=== PATIENT | female | born 1960 | race African-American/Black ===

== ENCOUNTER 2017-03-09 10:56 | Observation (INO) | payer MEDICAID ==
[2017-03-09] VITALS (7 sets, daily range): BP systolic 101–134; BP diastolic 62–73; PULSE 69–82; RESP 16–21; TEMP 98–98.9; O2SAT 95–100
[~2017-03-09 10:56] MED LIST: AMLO5TAB2 PO; ASPI81TA81 PO; BUTA1CAP7 PO; CHLO25TA38 PO; CYCL5TAB PO; INFL1INJ31 IM; METO25TA3 PO; MOBI7.5T PO; NEBULIZER1 MI1; NITR50VP; OXYC-392 PO; PLAV75TA29 PO; PRAV40TA PO; PROT40TA PO
[2017-03-09] MEDS ORDERED: SODIUM CHLORIDE 0.9% FLUSH 10 ML FLUSH IV FLUSH PRN (12:30)
[2017-03-09] MEDS ORDERED: NITROGLYCERIN 0.4 MG SL 25 TABS/BTL SL PRN (12:30)
[2017-03-09] MEDS ORDERED: ACETAMINOPHEN 500 MG CPLT PO PRN (12:30)
--- NOTE | 2017-03-09 13:28 | HHI.HP ---
HPI Primary Care Physician PCP located in [place] Chief Complaint Chest pressure History of Present Illness 56-year-old female significant history of hypertension, asthma, and reported myocardial infarction with one stent presents to emergency room for further evaluation of substernal chest pressure. Onset yesterday afternoon while swimming. States she dropped one of her rings at the bottom of her 10 foot deep pool and tried multiple times to swim down to get ring. On multiple occasions she became short of breath and had a difficult time getting to the bottom of a poor. She believes this was the onset of her chest pressure. After swimming yesterday she has had constant chest pressure. Associated symptoms include nausea, vomiting, and diaphoresis. No known relieving factors. Continues to have chest pressure. No radiation of pain. Endorses one cardiac stent in the past and is compliant with Plavix. Municipal Firefighter is Dr. Mcconnell in [place]. Endorses recent chemical stress test spring and was told test was normal. Review of Systems General: No fatigue,weakness, fever, chills, recent travel, recent illness, or change in appetite. Has been her general state of health. States her PUBLISHING MANAGER is currently working her up for left breast pain and awaiting a mammogram. HEENT: No CARR, no nasal congestion or drainage. Reports occasional dysphasia with certain foods, EGD completed at the end of last year normal." She continues to take Protonix daily as ordered. Endorses vision changes over the past few months, last eye exam over 7 years ago. CV: As stated above. No palpitations, intermittent leg pain, or dizziness RESP: No SOB, cough, wheeze, hemoptysis, recent URI. History of asthma, states asthma well controlled with rescue inhaler needed only to3 times monthly. GI: Nausea and vomiting has improved. No bowel changes, diarrhea, constipation , pain, distention, melena, blood in the stool. No unintentional weight gain or weight loss. : No dysuria, urgency, frequency, hematuria EXT: Occasional dependent edema relieved with elevation of legs. No paraesthesias MS: No discomfort or change in ROM NEURO: No change in memory, dizziness, difficulty with balance, LOC, motor/ sensory deficits PSYCH: Anxiety and depression stable on current medication, endorses situational stress regarding her son, stating "my son is addicted to drugs and causes me a lot of stress." SKIN: No rashes, no concerning lesions Past Family Social History Allergies: Coded Allergies: Coconut (Verified Allergy, Severe, Hives, 09/01/16) PEANUTS (Verified Allergy, Severe, Hives, 09/01/16) Penicillin (Verified Allergy, Severe, 09/01/16) CANNOT BREATHE Zofran (Verified Allergy, Severe, 09/01/16) Reglan (Verified Allergy, Unknown, freaked out, 09/01/16) Past Medical History Rheumatoid arthritis, anxiety, depression, asthma, sleep apnea, TIA (7 years ago ), hypertension, hyperlipidemia, GERD, degenerative disc disease, migraines, myocardial infarction with one stent Past Surgical History Cholecystectomy, hysterectomy, right breast lumpectomy, left knee replacement Reported Medications Active Oxycodone (Oxycodone HCl) 5 Mg Tab 0.5 Tab PO DAILY PRN FINAL REFILL: Please use sparingly and only when needed. This is the Amlodipine (Amlodipine Besylate) 5 Mg Tab 5 Mg PO DAILY Pravachol (Pravastatin) 40 Mg Tab 40 Mg PO DAILY Flexeril (Cyclobenzaprine HCl) 5 Mg Tab 5 Mg PO BID PRN Do not use while operating heavy machinery or driving. No refills without re-examination. Nebulizer 1 Mis Mis 1 Ea .ROUTE DIRECTED With tubing and mouth piece please Ikpzhojofo-Evlmolcstvamq-Adrkjjsy-Codeine [id number] Mg Cap 1-2 Cap PO Q4H PRN Do not exceed 6 capsules/day. Nitroglycerin 5 Mg/Ml Inj Aspir-81 (Aspirin) 81 Mg Tabdr Chlorpromazine (Chlorpromazine HCl) 25 Mg Tab 25 Mg PO TID PRN Protonix (Pantoprazole Sodium) 40 Mg Tab 40 Mg PO BID Plavix (Clopidogrel Bisulfate) 75 Mg Tab 75 Mg PO DAILY Metoprolol Tartrate 25 Mg Tab 25 Mg PO BID Active Ordered Medications Current Medications Medications (Trade) Dose Ordered Sig/Simon Route Start Time Stop Time Status Last Admin (Tylenol) 500 mg Q4H PRN PO 03/09/17 12:30 (Nitrostat Sl) 0.4 mg Q5M PRN SL 03/09/17 12:30 (Aspirin) 325 mg DAILY PO 03/10/17 09:00 Family History Noncontributory for early onset cardiovascular disease. Mother CABG 4 early 60s, father congestive heart failure, sister aortic aneurysm dissection Social History Known hypertension and hyperlipidemia. No known diabetes. Quit smoking 10 place years ago. Prior to quitting smoking 2 packs 4 years. Denies any alcohol or illegal drug use. States she is active swims daily. Past cardiac testing States she completed a chemical stress test in either November or December 2016 and was told test was normal. Believe she had a cardiac catheterization at [facility] in [place] approximately 7 years ago and at that time cardiac stent was placed. Per [place] records Bria scan completed 04/04/12 small areas of moderate reversibility and cardiac apex and lateral wall. 04/05/12 cardiac catheterization (Dr. Mays)- 1. Normal coronary arteries 2. Preserved LV function EF 55%. Physical Exam Vital Signs Vital Signs Date Time Temp Pulse Resp B/P Pulse Ox O2 Delivery O2 Flow Rate FiO2 03/09/17 12:46 98.9 82 19 115/73 96 Physical Exam GENERAL: Alert WN, WD, NAD, pleasant, obese, female HEAD: NC, AT EYES: Sclera clear ENT: Mucous membranes pink and moist NECK: Supple, no masses, trachea midline CV: RRR, systolic 2/6 murmur, no rub, gallop, no JVD, S1-S2 no S3-S4. RESP: Diminished bilateral bases, clear lung upper lobes. No crackles, wheeze, rhonchi, symmetrical chest rise, nonlabored, able to speak in full sentences ABD: Soft, NT, ND, no masses, positive bowel tones EXT: Pulses +24, trace dependent pedal edema MS: Normal tone 4 extremities, nontender, no obvious deformities, full range of motion NEURO: CN II through CN XII grossly intact, motor strength 5/5, gait WNL PSYCH: A+O 3, pleasant affect, appropriate speech, appropriate mood and affect , insight and judgment SKIN: Normal turgor, normal texture, no lesions, no rashes, even hair distribution Laboratory CBC completed [facility] unremarkable CMP completed [facility] unremarkable D-dimer 0.62 3 sets of troponin unremarkable AST 20, ALT 21 Imaging Chest x-ray read by radiologist no acute cardiopulmonary findings. CTA read by radiologist-1. No evidence of PE. 2.0 scattered atelectasis bilateral. 3. Cardiomegaly and coronary artery calcifications. 4. Tiny pericardial effusion 5. Mild prominence of the extrahepatic and central biliary system of indeterminate etiology. Correlation with alkaline and phosphatase and bilirubin levels suggested. 6. Degenerative changes and scoliosis of the thoracic spine.. Course EKG Normal sinus rhythm with right bundle branch Assessment and Plan Assessment and Plan #1 Chest pressureadmitted to chest pain center. Ruled out with 3 sets of cardiac enzymes. First EKG unremarkable, we'll complete 2 more EKGs. Will be seen and evaluated by Dr. Ana Jones. Further disposition to follow. #2 Musculoskeletal painToradol 30 mg IV 1 dose #3 Hyperlipidemiacontinue pravastatin #4 GERDcontinue Protonix, GI cocktail given in ER, encouraged follow up with GI and PCP regarding occasional dysphagia #5 Hypertensioncontinue amlodipine #6 History of cardiac stentcontinue Plavix, aspirin, and metoprolol 15:15-patient seen and evaluated by Dr. Ana Jones. Patient given option to complete CT of coronary arteries as patient has had recent normal Bria scan and in 2011 normal cardiac catheterization. Patient is agreeable to this plan of care. CT coronary arteries unable to be completed today therefore will be completed in a.erma. Sophia Kamara March 09, 2017 13:28
[2017-03-09] MEDS ORDERED: OXYC15TA PO (14:11)
[2017-03-09] MEDS ORDERED: NITR1SUB3 SL (14:11)
[2017-03-09] MEDS ORDERED: PRENATAL VITAMIN PO (14:17)
[2017-03-09] MEDS ORDERED: PYRI100T17 PO (14:17)
[2017-03-09] MEDS ORDERED: CYMB60CA PO (14:17)
[2017-03-09] MEDS ORDERED: K-TA10TA PO (14:17)
[2017-03-09] MEDS ORDERED: CLON0.5T PO (14:17)
[2017-03-09] MEDS ORDERED: ALBU0.08 NEB (14:19)
[2017-03-09] MEDS ORDERED: KETOROLAC TROMETHAMINE 30 MG/ML (IVP) VIAL IV PUSH ONE (14:30)
--- NOTE | 2017-03-09 15:17 | EKG ---
Date Performed: 03/09/2017 Time Performed: 13:04:12 PTAGE: 56 years EKG: Sinus rhythm RIGHT BUNDLE BRANCH BLOCK LEFT ANTERIOR FASCICULAR BLOCK ABNORMAL ECG Since PREVIOUS TRACING , no significant change noted PREVIOUS TRACIN04/03/2012 18.57 DOCTOR: Ana Jones Interpretating Date/Time 03/09/2017 15:14:58
[2017-03-09] MEDS ORDERED: MORPHINE SULFATE 4 MG/ML INJ IV ONE (15:45)
[2017-03-09] MEDS ORDERED: CYCLOBENZAPRINE HCL 10 MG TAB PO PRN (17:15)
[2017-03-09] MEDS ORDERED: RESP: ALBUTEROL 2.5 MG/3 ML NEB (PRN) NEB (17:15)
[2017-03-09] MEDS ORDERED: PILL SPLITTER OTHER PRN (18:00)
[2017-03-09] MEDS: PANTOPRAZOLE SOD 40 MG DELAYED RELEASE TAB PO SCH (20:27)
[2017-03-09] MEDS: clonazePAM 0.5 MG TAB PO PRN (20:27)
[2017-03-09] MEDS: METOPROLOL TARTRATE 25 MG TAB PO SCH (20:27)
[2017-03-09] MEDS: SODIUM CHLORIDE 0.9% FLUSH 10 ML FLUSH IV FLUSH SCH (20:28)
[2017-03-09] MEDS: MORPHINE SULFATE 4 MG/ML INJ IV PUSH PRN (20:29)
[2017-03-10 00:15] VITALS: O2SAT 100
[2017-03-10 04:00] VITALS: PULSE 70
[2017-03-10] MEDS: MORPHINE SULFATE 4 MG/ML INJ IV PUSH PRN ×2 (04:14→12:36)
[2017-03-10 07:56] VITALS: O2SAT 96
[2017-03-10 08:00] VITALS: PULSE 72
[2017-03-10 08:14] VITALS: BP 109/60; PULSE 71; RESP 20; TEMP 98.6; O2SAT 96
[2017-03-10] MEDS: PANTOPRAZOLE SOD 40 MG DELAYED RELEASE TAB PO SCH (08:40)
[2017-03-10] MEDS: SODIUM CHLORIDE 0.9% FLUSH 10 ML FLUSH IV FLUSH SCH (08:41)
[2017-03-10] MEDS ORDERED: amLODIPine BESYLATE 5 MG TAB PO SCH (09:00)
[2017-03-10] MEDS ORDERED: PRAVASTATIN SOD 40 MG TAB PO SCH (09:00)
[2017-03-10] MEDS ORDERED: POTASSIUM CHLORIDE 10 MEQ CONTROLLED RELEASE TAB PO SCH (09:00)
[2017-03-10] MEDS ORDERED: CLOPIDOGREL 75 MG TAB PO SCH (09:00)
[2017-03-10] MEDS ORDERED: ASPIRIN 325 MG TAB PO SCH (09:00)
[2017-03-10] MEDS ORDERED: clonazePAM 0.5 MG TAB PO PRN (09:15)
[2017-03-10] MEDS: clonazePAM 0.5 MG TAB PO PRN (09:47)
[2017-03-10] MEDS: METOPROLOL TARTRATE 25 MG TAB PO SCH (09:47)
[2017-03-10 11:20] VITALS: BP 122/74; PULSE 68; RESP 20; O2SAT 96
--- NOTE | 2017-03-10 12:51 | HHI.PR ---
Subjective Remarks Follow up for chest pain. Patient is currently waiting for left and right heart cath. Denies any acute concerns. Objective Vitals Vital Signs Date Time Temp Pulse Resp B/P Pulse Ox O2 Delivery O2 Flow Rate FiO2 03/10/17 11:20 68 20 122/74 96 03/10/17 08:14 98.6 71 20 109/60 96 03/10/17 08:00 72 03/10/17 07:56 96 Nasal Cannula 2.00 03/10/17 04:00 70 03/10/17 04:00 70 03/10/17 00:15 100 03/09/17 23:48 98.5 70 21 123/71 100 03/09/17 22:14 18 03/09/17 22:13 18 03/09/17 20:59 98.5 75 18 134/62 97 03/09/17 15:50 18 03/09/17 15:28 98.0 70 16 101/67 95 03/09/17 14:02 96 21 Imaging Last Impressions Cardiac Scoring CT 03/09/17 0000 Signed Impressions: Service Date/Time: Friday, March 10, 2017 11:41 - CONCLUSION: Findings as described above. Heath Jiménez MD FACR Objective Remarks GENERAL: AOX3, NAD. SKIN: Warm and dry. HEAD: Normocephalic. EYES: No scleral icterus. No injection or drainage. NECK: Supple, trachea midline. No JVD or lymphadenopathy. CARDIOVASCULAR: Regular rate and rhythm without murmurs, gallops, or rubs. RESPIRATORY: Breath sounds equal bilaterally. No accessory muscle use. GASTROINTESTINAL: Abdomen soft, non-tender, nondistended. MUSCULOSKELETAL: No cyanosis, or edema. BACK: Nontender without obvious deformity. No CVA tenderness. Procedures Cardiac cath 03/10/2017. Official report pending. Cath showed no significant CAD. A/P Assessment and Plan - Chest pressureadmitted to chest pain center. Ruled out with 3 sets of cardiac enzymes. Patient underwent Cardiac cath on 03/10/2017. No significant coronary artery disease. - Hyperlipidemiacontinue pravastatin - GERD - Continue PPI BID. - Hypertensioncontinue amlodipine - History of cardiac stentcontinue Plavix, aspirin, and metoprolol Discharge patient to home Condition on discharge: Improved Heart healthy Diet as tolerated Ad Darleen activity Rx written: No new medications. Follow-up with primary care physician within one week and Cardiology within two weeks. Sonya Joy DO March 10, 2017 12:51
[2017-03-10] MEDS ORDERED: clonazePAM 0.5 MG TAB PO ONE (13:00)
--- NOTE | 2017-03-10 13:30 | RADRPT ---
EXAM DATE/TIME: 03/10/2017 11:41 [facility] COMPARISON: No previous studies available for comparison. INDICATIONS : Chest pain RADIATION DOSE: 4.14 CTDIvol (mGy) MEDICAL HISTORY : Cardiovascular disease. SURGICAL HISTORY : Coronary artery stent. ENCOUNTER: Initial ACUITY: 1 day PAIN SCALE: 5/10 LOCATION: chest TECHNIQUE: Low-dose prospectively gated CT images of the heart were obtained and quantitative analysis of leon ry artery calcification was performed. Comparison was made to a patient database of similar age and g taylor. Using automated exposure control and adjustment of the mA and/or kV according to patient size , radiation dose was kept as low as reasonably achievable to obtain optimal diagnostic quality images . FINDINGS: There are no coronary artery calcifications evident. There are no significant vascular calcification s evident. There is stent in the mid LAD adjacent to a single calcified plaque. Significant ectopy without lower us to perform CT coronary angiogram. CONCLUSION: Findings as described above. Heath Jiménez MD FACR on March 10, 2017 at 13:27 Board Certified Radiologist. This report was verified electronically.
--- NOTE | 2017-03-10 13:50 | EKG ---
Date Performed: 03/09/2017 Time Performed: 15:39:46 PTAGE: 56 years EKG: NORMAL Sinus rhythm WITH PVC MARKED RIGHT AXIS DEVIATION RIGHT BUNDLE BRANCH BLOCK ABNORMAL ECG PREVIOUS TRACING : 03/09/2017 13.04 Since previous tracing, no significant change noted DOCTOR: Jorge Hernández Interpretating Date/Time 03/10/2017 13:49:47
[2017-03-10] MEDS ORDERED: HEPARIN-NS/PF INJ 500 ML ONE (14:39)
[2017-03-10] MEDS ORDERED: MIDAZOLAM HCL 2 MG/2 ML VIAL ONE ×2 (14:53→15:41)
[2017-03-10] MEDS ORDERED: IOHEXOL 350 MG/ML 100 ML BTL (for Cath Lab) OTHER ONE (15:30)
--- NOTE | 2017-03-10 15:36 | MB ---
cc: MONI LEVINE M.D. DATE OF CONSULTATION: 03/10/2017 HISTORY OF PRESENT ILLNESS Ludmila is a very pleasant 56-year-old lady who has a history of coronary disease status post PCI remotely in time. She presents with chief complaint of moderate chest pain described as tightness which occurred after swimming yesterday. Also described as pressure-like. According to the GABE Elias, she has been having PVCs. She had a stress test by her knitting tester in [place] approximately two months ago that was reported as being normal. Otherwise denies any fever, chills, cough, GI or bleeding, PND, orthopnea, syncope or dizziness. PAST MEDICAL HISTORY Per history of present illness. ALLERGIES 1. COCONUT. 2. PEANUTS. 3. PENICILLIN. 4. ZOFRAN. 5. REGLAN. PAST MEDICAL HISTORY 1. Rheumatoid arthritis. 2. Anxiety. 3. Depression. 4. Asthma. 5. Sleep apnea. 6. TIA. 7. Hypertension. 8. Hyperlipidemia. 9. GERD. 10.DJD. 11.Migraines. 12.Myocardial infarction status post PCI. PAST SURGICAL HISTORY 1. Cholecystectomy. 2. Hysterectomy. 3. Right breast lumpectomy. 4. Left knee replacement. MEDICATIONS Medications at home: 1. Oxycodone. 2. Amlodipine. 3. Pravachol. 4. Flexeril. 5. Nebulizer. 6. Butalbital. 7. Nitroglycerin. 8. Aspirin 81 mg a day. 9. Chlorpromazine. 10.Protonix. 11.Plavix 75. 12.Metoprolol 25 mg b.i.d. Medications in the hospital: 1. Aspirin 325 mg daily. 2. Amlodipine 5 mg daily. 3. Clopidogrel 75 mg daily. 4. Potassium 10 mEq daily. 5. Pravastatin 40 mg daily. 6. Metoprolol 25 mg b.i.d. 7. Pantoprazole 40 mg daily. REVIEW OF SYSTEMS She complains of dyspnea. PHYSICAL EXAMINATION VITAL SIGNS: Blood pressure 122/74, pulse 68, respiratory rate 20, temperature 98.6, sats 96% on room air. GENERAL: She is alert and oriented x3, in no acute distress. NECK: Supple. No JVD. No bruit. CARDIOVASCULAR: S1, S2. No murmurs, rubs or gallops. LUNGS: Clear to auscultation bilaterally. ABDOMEN: Soft, nontender, nondistended. Positive bowel sounds. EXTREMITIES: No lower extremity edema. IMAGING She had a cardiac scoring CT on 03/09/2017 showing a stent in the mid LAD adjacent to a single calcified plaque. No coronary calcifications evident. EKG EKG: Sinus rhythm with a right bundle branch block, left anterior fascicular block, nonspecific ST-T wave changes. DIAGNOSIS 1. Unstable angina. 2. [place] Cardi[employer] class 3 angina. 3. Coronary artery disease. 4. Dyspnea. 5. CHF. 6. Rheumatoid arthritis. 7. Arrhythmia. 8. PVCs. 9. Hypertension. 10.Hyperlipidemia. DISCUSSION At this point in time the patient has a high pretest probability for an ischemic etiology to her symptoms as she has a history of coronary disease with a calcified plaque adjacent to the LAD stent with new-onset cardiac symptoms of moderate chest pressure with relatively minimal exertion and dyspnea on exertion consistent with CHF. She also has a systemic inflammatory condition, rheumatoid arthritis, and multiple cardiac risk factors and co-morbidities. She has already had a stress test, therefore, I do think right heart catheterization and left heart catheterization are medically necessary due to the aforementioned reasons. MD TRAE Quinn/SOLITARIO /2:30 PM /3:15 PM
--- NOTE | 2017-03-10 15:38 | CATHPROC ---
[facility] HIS Report Study Information Study Number Scheduled Start Study Start 1043-17 03/10/2017 Mar 10 2017 3:01PM Referring Institution Admit Source Facility Department 1 Emergency department [facility] - Arrt Technologist Physician and Clinical Staff Initial Ilir Hayden Transit Survey WorkerElsa Mccartney RN Circulator Ferlitto, Joey,LUCA Recorder Terrell Elizabeth RCIS(BS) Scrub Adan Cooper,RT(R) Procedures Performed Procedure Location (Site) Vessel Name Coronary Angiograms LCA Left Coronary Coronary Angiograms RCA Right Coronary LV Gram-hand inj. LV LV Ventricle Equipment Time Shuttlecock Feather Trimmer Description Size Mfg Part Number Used/Scraped CATHETER, FR5 SWAN MYKE 15:14 LR ESQUIVEL FR 5 [id number] *[id number] Used MONITOR [id number] 15:16 LR ESQUIVEL SWAN MYKE CATHETER FR 7 Used *[id number] TRANSDUCER, TRUWAVE [id number] 15:14 LR ESQUIVEL * Used W/STOCKCOCK *[id number] TRANSDUCER, TRUWAVE [id number] 15:14 LR ESQUIVEL * Used W/STOCKCOCK *[id number] [id number] *[id number] [id number] *[id number] 15:14 [employer] INDUSTRIES PACK, CCL CUSTOM * Used *[id number] 15:14 [employer] PACER PEN, SKIN DUAL W/ RULER * Used *[id number] 15:14 [employer] WIRE, 3MMJ .035 180CM 180CM Used *[id number] 15:14 NAMIC MANIFOLD, 2 PORT * Used *[id number] 15:14 NAMIC MANIFOLD, 4 PORT * Used *[id number] 15:14 [employer]COMED OMNIPAQUE, 350 MG, 150ML 150ML [id number] Used [id number] 15:14 [employer] BLANKET,WARM AIR CCL * Used *[id number] 15:14 TERUMO MEDICAL SHEATH, FR4 TERUMO (10CM) FR 4 [id number] Used 15:14 TERUMO MEDICAL SHEATH, FR7 TERUMO (10CM) FR 7 [id number] Used History: Allergies Allergy Reaction Coconut Hives PEANUTS Hives Penicillin Reglan freaked out Zofran History: Risk Factors Family History of Hypertension Dyslipidemia Previous OK Previous Heart Failure Premature CAD No No No No No Prior Valve Prior PCI Prior CABG Surgery No No No Cerebrovascular Peripheral Artery Chronic Lung On Dialysis Diabetes Disease Disease Disease No No No No No History: Symptoms/Diagnosis Selection Items Chest pain History: Stress Tests Stress or Imaging Studies Performed No Labs Hgb (g/dl) Hct (%) WBC (l/cumm) Platelets (thousands) 12.00-18.00 37.00-55.00 4.80-10.80 140.00-450.00 12.4 37.4 8.7 191 Glucose (mg/dl) BUN (mg/dl) Creatinine (mg/dl) BUN:Creatinine (1:x) 60.00-110.00 8.00-20.00 0.10-9.00 10.00-20.00 114 13 0.9 14.4 Na (meq/l) K (meq/l) 138.00-146.00 3.80-5.10 141 3.5 Troponin I (ng/ml) CPK-MB (ng/ML) 0.40-2.30 0.00-7.00 0.02 Not Drawn Medication Medication Total Dose (Bolus/Oral) Medication Total Dosage/Unit 1% XYLOCAINE 20 mL FENTANYL 12.5 mcg VERSED 2 mg Medications (Bolus/Oral) Medication Time Given Dosage/Unit Administered By Reason FENTANYL 03/10/2017 3:08:00 PM 12.5 mcg Balaji Hou 12.5 mcg FENTANYL given in lab by Balaji Hou, LUCA in Right Hand via Peripheral IV. Ordered by Ilir Young. VERSED 03/10/2017 3:08:32 PM 1 mg Balaji Hou Patient arrived on 1 mg VERSED given by Balaji Hou, LUCA in Right Hand via Peripheral IV. Ordered Ilir Murdock. VERSED 03/10/2017 3:11:00 PM 1 mg Balaji Hou Patient arrived on 1 mg VERSED given by Balaji Hou RN in Right Hand via Peripheral IV. Ordered Ilir Murdock. 1% XYLOCAINE 03/10/2017 3:11:49 PM 20 mL Ilir Turk 20 mL 1% XYLOCAINE given in lab by Ilir Turk in Right Groin via Subcutaneous. Ordered by Ilir Blackburn. Medication (Drip) Medication Time Given Dosage/Unit Concentration/Unit Diluent (ml) Solution IV Solutions 03/10/2017 3:01:37 PM 0 mL (IV) 500 NaCl .9 Patient arrived on IV Solutions in Right Hand via Peripheral IV. Pump/Drip Flow = 20 ml/hr using NaCl .9. Ordered by Ilir Turk. Initial Case Assessment Cardiovascular HR Rhythm NIBP Chest Pain 62 AFIB 111/84 0 Edema Present Skin color Skin None Normal Warm Dry Circulatory - Right Pulses Dorsalis Pedis Femoral 3 2 Scale (0,1,2,3,4,d) Circulatory - Left Pulses Dorsalis Pedis Femoral 3 2 Scale (0,1,2,3,4,d) Circulatory - Lower Extremities Color Lower Right Color Lower Left Normal Normal Neurological State Oriented to time-place- Alert Moves all extremities person Respiration - General Respiration Rate SpO2 (%) (B/min) 15 96 Final Case Assessment Cardiovascular HR Rhythm NIBP Chest Pain 62 AFIB 111/84 0 Edema Present Skin color Skin None Normal Warm Dry Circulatory - Right Pulses Dorsalis Pedis Femoral 3 2 Scale (0,1,2,3,4,d) Circulatory - Left Pulses Dorsalis Pedis Femoral 3 2 Scale (0,1,2,3,4,d) Circulatory - Lower Extremities Color Lower Right Color Lower Left Normal Normal Neurological State Oriented to time-place- Alert Moves all extremities person Respiration - General Respiration Rate SpO2 (%) (B/min) 15 96 Chronological Log Time Study Chronological Log 14:50:00 Patient arrived via Bed. 14:51:00 Patient Name, D.O.B, / Armband Verified By R.N. 14:51:29 Consent signed by the physician and the patient and verified by the Arrt Technologist staff. 15:01:29 Pre-op and post- op instructions given; patient acknowledges understanding of instructions. 15:01:30 Verbal Stimulation=2 Physical Stimulation=2 Airway=2 Respiration=2 TOTAL=8. (0=absent, 1=li mited, 2=present) 15:01:32 Patient has been NPO for Less than 6Hrs. 15:01:33 Skin Breakdown- 15:01:33 Patient Warmer Placed on the Table. 15:01:36 A # 20 IV was noted in the Hand (right). Grade = 0 Patient arrived on IV Solutions in Right Hand via Peripheral IV. Pump/Drip Flow = 20 ml/hr usin g NaCl .9. Ordered by 15:01:37 Ilir Turk. 15:01:38 History and physical on the chart or being dictated. Assessment: Initial Case, HR=62 BPM, Rhythm=AFIB, UTYR=146/84 mmhg, Chest Pain=0, Edema=None, Color=Normal, Skin = Warm, Dry Right Pulses: Sadiq Ped=3, Femoral=2 Left Pulses: Sadiq Ped=3, Femoral=2 15:01:39 Lower Right Extremities: Color=Normal Lower Left Extremities: Color=Normal Neurological: State=Alert, Ox3, HEBERT Respiration: Resp=15 B/min, SpO2=96 % 15:03:48 Pressure channel 1 zeroed. Vitals capture started with the following parameters, Patient=Adult, Interval=5 min, Initial Pr ndejqo=507 mmHg, 15:05:05 Deflation Rate=5 mmHg 15:05:37 HR=66 bpm, YGXT=007/84 mmhg, SpO2=98.0 %, Resp=15 B/min, Pain=0, Re=10, Giordano=2 15:06:30 MD paged 15:06:34 Reference ECG taken 15:06:46 Bilateral groins prepped with 2% chlorhexidine, and with a 3 min. waiting time. 15:07:00 MD arrived. 15:08:00 12.5 mcg FENTANYL given in lab by Balaji Hou, LUCA in Right Hand via Peripheral IV. Order ed by Ilir Turk. Patient arrived on 1 mg VERSED given by Balaji Hou, LUCA in Right Hand via Peripheral IV. Ord ered by Rosalee, 15:08:32 Ilir. Time Out. Correct patient, correct procedure,correct physician, ,power injector loaded or not l oaded with contrast with 15:09:15 surgical team present. Time Out Concurred by MD, individual staff and CREDIT OFFICE MANAGER in procedure 15:10:00 Case Start 15:10:37 HR=73 bpm, XFIN=874/83 mmhg, SpO2=98.0 %, Resp=15 B/min, Pain=0, Re=10, Giordano=2 Patient arrived on 1 mg VERSED given by Balaji Hou, LUCA in Right Hand via Peripheral IV. Ord ered by Rosalee, 15:11:00 Ilir. 20 mL 1% XYLOCAINE given in lab by Rosalee, Ilir in Right Groin via Subcutaneous. Ordered by Rosalee, 15:11:49 Ilir. 15:13:29 Access site was Right Femoral Artery. 15:14:04 A SHEATH, FR4 TERUMO (10CM) FR 4 was advanced into the Fem Art (right) using the Percutaneo us technique. 15:14:48 Access site was Right Femoral Vein. 15:14:52 A SHEATH, FR7 TERUMO (10CM) FR 7 was advanced into the Fem Vein (right) using the Percutane ous technique. A SWAN MYKE CATHETER FR 7 was advanced over a wire. OMNIPAQUE, 350 MG, 150ML 150ML was used for 15:15:36 injections. 15:15:40 HR=69 bpm, PPKN=090/83 mmhg, SpO2=97.0 %, Resp=13 B/min, Pain=0, Re=10, Giordano=2 Recorded Pressure: PCW, HR=77, Condition=Condition 1 15:16:49 (Pulmonary Capillary Wedge) PCW 8 Recorded Pressure: MPA, HR=68, Condition=Condition 1 15:17:10 (Main Pulmonary Artery) MPA 10/07/17 15:17:44 Saturation: Site=FA (Femoral Artery) , O2=94.8 %, Hgb=12.4 gm/dl, Condition=Condition 1. Us ed in calculation. Recorded Pressure: RV, HR=68, Condition=Condition 1 15:18:05 (Right Ventricle) RV 28/10/15 Recorded Pressure: RA, HR=64, Condition=Condition 1 15:18:17 (Right Atrium) RA 7/4 15:18:23 Saturation: Site=PA (Pulmonary Artery) , O2=72.7 %, Hgb=12.4 gm/dl, Condition=Condition 1. Used in calculation. 15:18:59 Saturation: Site=RA (Right Atrium) , O2=73.3 %, Hgb=12.4 gm/dl, Condition=Condition 1. Used in calculation. 15:19:10 [place] Myke Catheter Removed Recorded Pressure: LV, HR=64, Condition=Condition 1 15:20:34 (Left Ventricle) LV 118/2/15 Recorded Pressure: LV, Ao, HR=69, Condition=Condition 1 15:20:48 (Left Ventricle) LV 113/0/16, (Aorta) Ao 112/65/86 A JR 4.0 INFINITI CATHETER FR 4 was advanced over a wire. OMNIPAQUE, 350 MG, 150ML 150ML was u sed for 15:20:54 injections. 15:21:05 The LV was manually injected with 8 cc's and visualized. OMNIPAQUE, 350 MG, 150ML 150ML us ed. 15:21:20 HR=65 bpm, JLMP=860/71 mmhg, SpO2=93.0 %, Resp=18 B/min, Pain=0, Re=10, Giordano=2 15:21:28 The RCA was injected and visualized at various angles. OMNIPAQUE, 350 MG, 150ML 150ML use d. Recorded Pressure: Ao, HR=66, Condition=Condition 1 15:22:45 (Aorta) Ao 116/66/88 15:23:38 Catheter was removed A JL 4.0 INFINITI CATHETER FR 4 was advanced over a wire. OMNIPAQUE, 350 MG, 150ML 150ML was u sed for 15:23:39 injections. 15:23:40 The LCA was injected and visualized at various angles. OMNIPAQUE, 350 MG, 150ML 150ML use d. 15:24:02 Catheter was removed 15:25:06 Case End 15:25:38 HR=65 bpm, QQIP=629/80 mmhg, SpO2=97.0 %, Resp=14 B/min, Pain=0, Re=10, Giordano=2 15:30:16 Vitals capture stopped. Assessment: Final Case, HR=62 BPM, Rhythm=AFIB, NGGZ=223/84 mmhg, Chest Pain=0, Edema=None, Color=Normal, Skin = Warm, Dry Right Pulses: Sadiq Ped=3, Femoral=2 Left Pulses: Sadiq Ped=3, Femoral=2 15:30:24 Lower Right Extremities: Color=Normal Lower Left Extremities: Color=Normal Neurological: State=Alert, Ox3, HEBERT Respiration: Resp=15 B/min, SpO2=96 % 15:31:44 Sterile dressing applied to site 15:31:45 No case complications noted. 15:32:02 Cine recording checked. 15:32:06 Bedside Report will be given. 15:32:09 Contrast Scanned 15:32:13 A Left and Right Heart Cath was performed. 15:32:14 Patient moved to stretcher End Study - Contrast Media Used In Study Contrast Total Opened (mL) Total Used (mL) Total Wasted (mL) Omnipaque 30 30 0 End Study - Maximum Contrast Load Max Contrast Load (mL) 580.8 End Study - Radiation Exposure Fluoro Time (minutes) 1.6 End Study - Patient Disposition Complications Transferred To Telemetry Bed
[2017-03-10] MEDS ORDERED: MISC INFORMATION XX ONE (15:45)
[2017-03-10] MEDS ORDERED: SODIUM CHLORIDE 0.9% FLUSH 10 ML FLUSH PRN (15:45)
[2017-03-10] MEDS ORDERED: MIDAZOLAM HCL 2 MG/2 ML VIAL IV PUSH ONE (17:15)
[2017-03-10] MEDS ORDERED: SODIUM CHLORIDE 0.9% FLUSH 10 ML FLUSH SCH (21:00)
--- NOTE | 2017-03-12 18:49 | MR ---
cc: MONI LEVINE MD DATE 03/10/17 PROCEDURE Right heart catheterization, left heart catheterization, left arteriography, coronary angiography. INDICATIONS 1. Unstable angina. 2. [place] Cardiovascular Society Class III angina and [place] Heart Association Class III congestive heart failure, history of coronary artery disease. PROCEDURE IN DETAIL The patient was brought to the cardiac catheterization laboratory, prepped and draped in the usual sterile fashion. 10 cc of 1% lidocaine was used to locally anesthetize the right common femoral artery. A 4-Tuvaluan sheath placed in right common femoral artery, 7-Tuvaluan sheath placed in right common femoral vein. Right heart catheterization was performed first with the following findings: Pulmonary capillary wedge pressure 15/10/8, PA pressure 30/9/17. RV pressure 20/1/5. RA pressure 7/5/4. The cardiac output by Marino is 7.0 liters per minute. Cardiac index by Marino is 3.4 liters per meter squared per minute. FA sat on room air at 94.8%. PA sat on room air 72.7% and RA sat on room air 73.3%. Left heart catheterization was then performed with the following findings: LV pressures 115/8/9 and this is performed with a 4-Tuvaluan JR-4 and JL-4 catheter. EF 60%. Right coronary artery nondominant. No significant disease angiographically. Left main coronary has no significant disease angiographically. Left circumflex vessel is a large dominant vessel, no significant disease angiographically. First obtuse marginal vessel is a medium-sized vessel very tortuous in the mid to distal segment, no significant disease angiographically. Second marginal vessel is a small to medium size vessel, again very tortuous in the [id number] segment but no significant obstructive disease. Distal posterolateral artery is a small to medium size vessel, no significant obstructive disease. Left PDA has no significant obstructive disease. It is a medium-sized vessel. LAD - there is a focal concentration of calcium in the proximal mid LAD but no significant obstruction. LAD is transapical. First diagonal artery is a medium-sized vessel with no significant disease angiographically. Second diagonal artery is a small artery. No significant disease angiographically. CONCLUSION 1. Angiographically no significant coronary disease in a left-dominant system as detailed above 2. Normal LV systolic function is 60%. 3. Upper limit of normal to upper limit of normal right heart pressures as detailed above. 4. Normal LV systolic function, ejection fraction 60%. 5. Focal calcium seen in the proximal LAD. 6. Recommend medical management of coronary disease, cardiac risk factor modification. MD TRAE Quinn/ /3:32 PM /6:41 PM
== END 2017-03-10 19:01 | disposition home or self-care (01) ==
LOC: NEDDLT 12:08 → UNDOADMOB 12:18 → NEPHCDU 12:18 → HCIS 03-10 14:31 → NEPHCDU 03-10 14:31 → OBSVTOIN 03-10 15:35 → INTOOBSV 03-10 15:35 → UNDODISOB 03-10 19:01 → HCIS 03-10 19:03
PROVIDERS: ADMIT Hospitalist; ATTEND Hospitalist
DX: R07.9 Chest pain, unspecified (principal); I25.110 Atherosclerotic heart disease of native coronary artery with unstable angina pectoris; I11.0 Hypertensive heart disease with heart failure; I50.9 Heart failure, unspecified; F32.9 Major depressive disorder, single episode, unspecified; I25.2 Old myocardial infarction; J45.909 Unspecified asthma, uncomplicated; Z95.5 Presence of coronary angioplasty implant and graft; Z86.73 Personal history of transient ischemic attack (TIA), and cerebral infarction without residual deficits; Z96.652 Presence of left artificial knee joint; K21.9 Gastro-esophageal reflux disease without esophagitis; F41.9 Anxiety disorder, unspecified; M06.9 Rheumatoid arthritis, unspecified; G47.30 Sleep apnea, unspecified; E78.5 Hyperlipidemia, unspecified; Z79.82 Long term (current) use of aspirin; Z87.891 Personal history of nicotine dependence; M51.34 Other intervertebral disc degeneration, thoracic region; Z79.02 Long term (current) use of antithrombotics/antiplatelets
CPT/HCPCS: 71010; 71275; 75571; 76937; 80053; 84484; 85025; 85379; 85652; 93005; 93460; 96374; 96375; 99285; C1769; C1893; G0378; J1200; J1644; J2060; J2250; J2270; J3010; Q9967